=== PATIENT | female | born 2000 | race Caucasian/White ===

== ENCOUNTER 2020-01-20 09:39 | Emergency (ER) | payer MEDICAID, SELFPAY ==
[2020-01-20] VITALS (13 sets, daily range): BP systolic 90–115; BP diastolic 51–71; PULSE 54–109; RESP 16–22; TEMP 36.7–37.3; O2SAT 96–100; BMI 22.1
--- NOTE | 2020-01-20 09:49 | CT_ITS ---
STUDY: CT BRAIN WITHOUT CONTRAST REASON FOR EXAM: Female, 19 years old. PT HAD SEIZURE-LIKE ACTIVITY WHILE BEING TRANSPORTED FROM [facility] TO [facility] FOR SUICIDAL IDEATIONS. PT ABLE TO FOLLOW COMMANDS ON ARRIVAL BUT IS NONVERBAL. RADIATION DOSAGE (If Supplied By Facility): CTDIvol = ( 44.99 ) mGy, DLP = ( 796.11 ) mGycm TECHNIQUE: Transaxial CT imaging of the brain was performed without administration of intravenous contrast material. Individualized dose optimization techniques were used for this CT. COMPARISON: No relevant priors. FINDINGS: Normal soft tissue structures. Normal calvarium. Normal size ventricles and extra-axial spaces for the patient''s age. Normal white matter tracts of the cerebral hemispheres. Normal basal ganglia and thalami. Normal brainstem. Normal cerebellum. There is no intracranial hemorrhage. There are no findings of an acute ischemic infarction. Mild mucosal thickening of the left maxillary sinus. CT/Brain/Head without Contrast IMPRESSION: Normal unenhanced CT scan of the brain. Electronically Signed: Todd Balderas DO at 11:27 EDT Tel [phone], Service support ,
--- NOTE | 2020-01-20 11:02 | ED.VISSUMM ---
- ER Visit Summary Date of Service: 01/20/20 Chief Complaint: Possible seizure History of Present Illness: The patient is a 19 F presenting with possible seizure. Patient was being transported between [facility] and psychiatric facility in [place] for suicidal ideation and combative behavior. En route to [place], EMS was concerned that she was having a seizure. She has no history of seizure disorder. She has history of bipolar disorder, autism, anger issues. Physical Examination: Vitals are stable. Patient is afebrile. Alert no acute distress. HEENT exam is unremarkable. Neck is supple. No meningismus Lungs are clear and equal bilaterally. Heart is regular rate and rhythm. Abdomen is soft nontender nondistended. Extremities are unremarkable. Skin is warm and dry. No focal neurologic deficit. Agitated Remainder of exam is unremarkable. Emergency Department Course and Treatment: On arrival to the ED she is shaking her right arm but is able to follow commands and is trying to climb out of bed. Labs were reviewed from [facility]. On arrival, she is agitated and combative. She was able to become cooperative with verbal redirection. She did not require restraints. CT head was obtained and shows normal unenhanced CT scan of the brain. Patient is medically cleared. Patient is being evaluated by social work in the ED. Disposition: Transfer Impression: Questionable seizure, suicidal ideation, combative behavior This note was generated with [employer] dictation software. It may contain incorrect words, spelling, and punctuation that were not noted in review of the chart prior to signing ED Disposition - Plan for ED Patient: Referrals: Care Physician,No Primary [Primary Care Provider] -
[2020-01-20] MEDS: Acetaminophen 500 MG Tablet 1000 MG PO (11:22)
--- NOTE | 2020-01-20 12:03 | CM.ED ---
Social Work Consult: Mental Health Informant: Dr. Hinds Per chart review patient was in route to [facility] psychiatric facility and then became symptomatic for possible seizure. The EMS re-routed this this facility. Dr. Hinds reports that patient is medically cleared for placement to [facility]. Telephone call to Arturo Rubin. [facility] is reporting to be unable to accept patient at this time due to possible seizure. Arturo reporting that patient would need to be seizure free for 72 hours and then a new referral would need to be started. Arturo clarifying that patient is currently declined and a bed is not being held for patient. Updated medical team. Alia Chou MSW, JERE
[2020-01-20] MEDS: Ziprasidone IM 20 MG/ML VIAL IM (12:32)
--- NOTE | 2020-01-20 13:10 | ED.RN ---
PT WAS TRYING TO BITE AND HIT HERSELF. SITTER WAS TRYING TO REDIRECT HER SHE STARTED DOING IT MORE AGGRESSIVELY. ATTEMPTED TO TALK WITH PT AND SHE THEN STARTED SWINGING HER FIST AND KICKING WELL. EXPLAINATION OF BEING MEDICATED WAS DONE AND PT STILL REFUSED TO COOPERATE. PT WAS GIVEN GEODON IM. SITTER CONTINUED TO TRY TO CALM HER UNSUCCESSFULLY. PT WAS THEN PLACED IN RESTRAINTS. PT ATTEMPTED TO BITE AND SPIT STAFF IN THE PROCESS WELL HAS HITTING AND KICKING.
--- NOTE | 2020-01-20 15:00 | ED.RN ---
PT'S RT WRIST AND LEFT ANKLE WERE TAKEN OUT OF RESTRAINTS, EXPLAINED TO PT THAT IF SHE CAN BE COOPERATIVE, SHE WILL GET TO HAVE RESTRAINTS OFF. PT AGREES TO BEHAVE. PT GIVEN MEAL AND DRINK.
--- NOTE | 2020-01-20 15:21 | CM.ED ---
Social Work Late Entry. See below for times of interactions on this day. This social work lecturer reviewing patient clinical from [facility]. Patient has contact center engineer, Jenny listed: [phone]. Jenny appears to be main contact from chcf, [facility]. 1240 - Currently unable to assess patient due to patient behaviors. 1241 - Telephone call to Jenyn. Jenny reporting that patient was assessed by [facility] in [facility] at the [facility] due to patient eloping, hitting, kicking others. Jenny states that [facility] pink slipped patient to [facility] due to concern of patient harming others. Patient was medically cleared and accepted by [facility] for placement. Jenny states that the [facility] chcf recently accepted patient on January 18, 2020 and patient is reported to have difficultly adjusting to new environments. Per Jenny patient aged out of prior [facility]cf ([facility]). Patient was at [facility] from 2017-January 18, 2020. Patient father is Joaquín ([phone]). Jenny states that patient is own guardian. Patient currently in a board of developmental disabilities approved chcf. Patient district sales leader is Ava Moy ([phone]. [phone]). Jenny confirms to be unable to accept patient back to ch[facility] until further psychiatric assessment/care has been established to facilitate stabilization. This social work lecturer thanking Jenny for information. 1407 - Telephone call to local [facility], [place] for collaboration. [place] advising this social work lecturer to call [facility] ([phone]) in [facility] to see if [facility] will continue to follow with case. This social work lecturer thanking [place] for time and collaboration. [place] states that [facility] will not be able to place patient due to [place] being from another [place] and not having the funding. 1443 - Telephone call to [facility] in [facility], [facility] reporting to be aware of the situation and to be working on finding patient further placement. [facility] provided with this social work lecturer contact information and plans to call this social work lecturer with updates. [facility] requesting for medical clearance to be faxed to: [phone]. This social work lecturer faxing medical clearance. 1450 - Medical team updated on above information. PLAN: Waiting on return phone call from [facility]. JERE Morel
--- NOTE | 2020-01-20 16:00 | ED.RN ---
Addendum entered by Jenny Read 01/20/20 17:43: ERROR ON COMMENT ABOUT PT IN RESTRAINTS. STATEMENT WAS TO SAY, PT IS NOW FULLY OUT OF RESTRAINTS. Original Note: PT HAS BEEN COOPERATIVE WITH STAFF AND SITTER, PT IS NOT FULLY OUT OF RESTRAINTS.
--- NOTE | 2020-01-20 17:28 | CM.ED ---
Social Work Telephone call to [facility] ([facility]), Laurie. Laurie states to have just spoken with [facility] and they might be able to accept. Laurie requesting for this drug abuse social worker to fax medical clearance from this ED. Laurie asking for lab results from [facility] (that came with patient chart) could be faxed as well. Laurie requests for this drug abuse social worker to also fax chart to [facility] in the event that [facility] declines. Laurie providing a fax number of: [phone] for [facility]. Above mentioned documentation along with face sheet faxed to [facility] and [facility]. Medical team updated. PLAN: Continue to be pending placement. Alia Chou MSW, JERE
[2020-01-20] MEDS: LORazepam 2 MG/ML Syringe 0.5 MG IV (19:08)
[2020-01-20 19:10] LABS: Absolute Lymphocyte Count 2.56 X10^3/uL (0.83-4.51); Absolute Neutrophil Count 4.4 X10^3/uL (2.0-7.7); Basophil# 0.01 X10^3/uL; Basophil% 0.1 % (0-1); Hemoglobin 12.7 g/dL (12.0-15.0); Internal QC Validated? YES +Cl - CLEAR BKGD; Lymphocyte # 2.56 X10^3/ul (4.0); Lymphocyte % 32.7 % (19-41); Mean Corp Hgb Conc 31.8 g/dL (32-36); Mean Corpuscular Hgb 28.8 pg (27.0-32.0); Mean Corpuscular Volume 90.7 fL (81-99); Mean Platelet Vol. 9.1 fl (6.2-12.0); Monocyte# 0.84 X10^3/uL; Monocyte% 10.7 % (0-10); NRBC Flagged by Analyzer 0 % (0-5); Neutrophil % 56.2 % (47-70); Platelet Count 337 K/mm3 (150-450); RBC Distribution Width CV 13.1 % (11.6-14.6); RBC Distribution Width SD 43.3 fl (35.1-43.9); Red Blood Count 4.41 M/mm3 (4.2-5.4); White Blood Count 7.8 K/mm3 (4.4-11.0)
[2020-01-20 19:20] LABS: Pregnancy, Serum, hCG Quali. NEGATIVE Negative
--- NOTE | 2020-01-20 19:22 | CM.ED ---
Social Work Updated by Dr. Solomon that patient is now presenting with seizure like behavior and unable to rule out Sudo-seizure vs. seizure without 24hr EEG monitoring. [facility] is not able to do 24hr EEG monitoring. Dr. Solomon to have staff look into a facility that is able to monitor patient to determine current medical status as patient most likely will not be accepted by psychiatric facility until able to determine nature of symptoms. Telephone call to [facility] ([facility]), Thom. Thom reporting that [facility] declined patient. This social services counselor updating Thom on above information. Radhaa voicing understanding to possible transfer for patient and ask to be updated accordingly. [facility] - [phone] PLAN: Undetermined. Alia JOHNSON, JERE
[2020-01-20 19:23] LABS: Anion Gap 7 (5-15); BUN 7 mg/dL (7-18); BUN/Creat Ratio 8.6 RATIO (10-20); Chloride 111 mmol/L (98-107); Creatinine, Serum 0.81 mg/dL (0.55-1.02); EST Glomerular Filtration Rate 96 mL/min (>60); Est Glom Filt Rate - Afr Amer 117 mL/min (>60); Estimated Creatinine Clearance 104.58 ml/min; Glucose 83 mg/dL (74-106); Potassium 3.7 mmol/L (3.5-5.1); Sodium Level 143 mmol/L (136-145)
--- NOTE | 2020-01-20 19:30 | ED.RN ---
Pt was shaking rt arm with eyes closed, tried to talk with pt. Dr. Solomon came into pt's room to examine the pt, pt did squeeze her hands but would not speak to her. Orders were given for iv and blood work with 0.5mg of Ativan iv. After some time pt opened her eyes and was crying. This RN spoke with the pt and asked why she was crying. Pt stated I have a lot of emotions and wants her family (back at her [facility]). I sat with the pt and talked with her to try and calm her down.
[2020-01-20] MEDS: Docusate Sodium 100 MG Capsule PO (20:32)
[2020-01-20] MEDS: traZODone 100 MG Tablet PO (20:32)
--- NOTE | 2020-01-20 21:13 | CM.ED ---
Social Work Telephone call to [facility] ([facility]), Giovanny. Updated Giovanny that patient is being transferred to [facility] for EEG monitoring. Giovanny voicing understanding and will pass the information onto the team. Giovanny voicing that plan is to continue to follow patient and attempt placement once patient is medically cleared. Alia Chou MSW, JERE
--- NOTE | 2020-01-20 22:38 | ED.RN ---
Report given to Katherin Solo Report given to [facility] med.
== END 2020-01-20 22:39 | disposition short-term general hospital (02) ==
LOC: ED 11:25
PROVIDERS: Emergency Medicine; Emergency Provider Emergency Medicine
DX: R45.851 Suicidal ideations (principal)
CPT/HCPCS: 70450; 80048; 84703; 85025; 96372; 96374; 99285; A4216; J3486